=== PATIENT | male | born 1970 | race Caucasian/White ===

== ENCOUNTER 2018-12-03 15:25 | Emergency (ER) | payer OTHER ==
[~2018-12-03] VITALS: Ht 180.3 cm; Wt 90.7 kg
[2018-12-03 15:25] VITALS: BP 118/65
[2018-12-03] MEDS ORDERED: ACETAMINOPHEN ES 500 MG TABLET ONE (16:14)
[2018-12-03] MEDS ORDERED: ACETAMINOPHEN 325 MG TABLET PO ONE (16:30)
== END 2018-12-03 16:21 | disposition home or self-care (01) ==
LOC: ER 15:26
DX: M54.2 Cervicalgia (principal); Z91.013 Allergy to seafood; V49.49XA Driver injured in collision with other motor vehicles in traffic accident, initial encounter; Y93.89 Activity, other specified; Y92.89 Other specified places as the place of occurrence of the external cause; Y99.8 Other external cause status
CPT/HCPCS: 99283; A4606